=== PATIENT | male | born 1940 | race Caucasian/White ===

== ENCOUNTER 2020-08-25 20:58 | Observation (INO) ==
[2020-08-25] MEDS ORDERED: SODIUM CHLORIDE 0.9% 1000ML 500 ML IV ONE (21:28)
[2020-08-25] MEDS ORDERED: ONDANSETRON INJ 2 MG/ML 2 ML VIAL IV STA (21:28)
[2020-08-25] MEDS ORDERED: KETOROLAC TROMETHAMINE 15 MG/ML VIAL IV STA (21:28)
[2020-08-25 22:17] LABS: Basophils # (auto) 0.01 K/uL (0-0.2); Basophils % (auto) 0.1 %; Eosinophils # (auto) 0.02 K/uL (0-0.5); Eosinophils % (auto) 0.3 %; Hematocrit (blood only) 41.5 % (42-52); Hemoglobin 14.9 g/dL (14.0-18.0); Immature Granulocytes # (auto) 0.03 K/uL (0.00-0.02); Immature Granulocytes % (auto) 0.4 %; Lymphocytes # (auto) 0.49 K/uL (1.2-3.4); Lymphocytes % (auto) 7.2 %; Mean Corpuscular Hemoglobin 32.2 pg (25-34); Mean Corpuscular Hgb Conc 35.9 g/dL (32-36); Mean Corpuscular Volume 89.6 fL (80-100); Mean Platelet Volume 10.4 fL (7.4-10.4); Monocytes # (auto) 0.36 K/uL (0.11-0.59); Monocytes % (auto) 5.3 %; Neutrophils # (auto) 5.93 K/uL (1.4-6.5); Neutrophils % (auto) 86.7 %; Platelet Count 172 K/uL (130-400); RDW Coefficient of Variation 12.8 % (11.5-14.5); RDW Standard Deviation 41.8 fL (36.4-46.3); Red Blood Count 4.63 M/uL (4.7-6.1); White Blood Count 6.84 K/uL (4.8-10.8)
[2020-08-25 22:33] LABS: Alanine Aminotransferase 88 U/L (12-78); Albumin Level 4.3 gm/dl (3.4-5.0); Aspartate Aminotransferase 49 U/L (15-37); BUN Creatinine Ratio 22.6 (10-20); Bilirubin Direct < 0.1 mg/dl (0-0.2); Blood Urea Nitrogen 29 mg/dl (7-18); Calcium 9.6 mg/dl (8.5-10.1); Carbon Dioxide 27 mmol/L (21-32); Chloride 102 mmol/L (98-107); Creatinine Clr Calc Pharmacy 54.4 ml/min; Est GFR (African American) 62.3; Est GFR (Non-African American) 53.8; Glucose 204 mg/dl (70-99); Lipase 212 U/L (73-393); Sodium 136 mmol/L (136-145)
[2020-08-25 22:36] LABS: Alkaline Phosphatase 71 U/L (45-117); Bilirubin,Total 0.6 mg/dl (0.2-1); Total Protein 8.5 gm/dl (6.4-8.2)
--- NOTE | 2020-08-25 23:31 | Surgery Consultation ---
Date of Consultation August 25, 2020 Assessment & Plan (1) Cholecystitis: Patient will be admitted to the hospital and due to his underlying medical conditions will be admitted by the medical service. 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 after midnight It appears as though the patient would benefit from a cholecystectomy. However we would like the medical service to provide input regarding cardiac clearance/cardiac risk factor stratification particularly with his history of diabetes, and coronary artery disease and his reported dyspnea on exertion with steps and inclines. Tentatively place him on the OR schedule for laparoscopic possible open cholecystectomy tomorrow pending medical evaluation History of Present Illness Reason for Consultation: Cholecystitis History of Present Illness This is a 72-year-old male who presented to [facility] emergency department secondary to epigastric and right upper quadrant abdominal pain. Patient notes that he has been having intermittent on and off pain in his epigastric and right upper quadrant for several weeks. He notes that the pain is usually present approximately 20 to 30 minutes after eating a meal but the pain usually abates and does not cause him much trouble. He presented to the emergency department this evening as he developed similar pain however the pain was much greater in severity and did not geovanny. In addition he had some associated nausea and vomiting. He notes the pain did not radiate anywhere and feels it is though it was provoked by eating a meal. He notes the pain is palliated by pain medications that were administered in the emergency depa rtment. In the emergency department the patient had imaging and laboratory studies were independently reviewed by myself. He had a chest x-ray and KUB did not show any evidence of small bowel obstruction or any evidence of pneumonia or CHF. He did have a gallbladder ultrasound that showed a distended gallbladder with gallstones present. Sonographic Yee sign was reported to be present as well. Labs included a CBC where his white blood cell count was within normal range. His hemoglobin and platelet count were also noted be within normal range. Chemistry profile showed that his sodium, potassium, and creatinine are within normal range. His total bilirubin was normal but there was slight elevation of his LFTs with an AST of 49 and ALT of 88. It is noteworthy mention that the patient's records were reviewed dating back to 2018 where he was noted to have a slight elevation of his AST and ALT with levels of 30 and 55 respectively. His lipase was not elevated. Covid test has been ordered and is pending. As the patient has a known history of coronary artery disease and diabetes I did question him about his functional capacity. He denies any exertional chest pain however he does admit to dyspnea on exertion particular with steps and inclines. He reports that once he climbs 2 flights of steps he has to pause and his shortness of breath usually abates. Questioned about his cardiac history and he notes that he did have a stress test approximately 1 year ago and in the past he is also had a cardiac catheterization. The best of his knowledge his most recent stress test was okay but this was unavailable for my review as his operator supply is Dr. Malcolm in [place]. At the time of my interview the patient was in no distress and resting comfortably in bed. Allergies Allergy/AdvReac Type Severity Reaction Status Date / Time No Known Allergies Verified 08/25/20 23:21 Home Medications Medication Instructions Recorded Confirmed Type atorvastatin 10 mg tablet 10 mg PO QAM 01/24/19 08/25/20 History metformin 1,000 mg tablet 1,000 mg PO BID 01/24/19 08/25/20 History loratadine 10 mg tablet 10 mg PO QPM 06/10/19 07/05/20 History omega-3 fatty acids 1,000 mg 1,000 mg PO QPM 06/10/19 07/05/20 History capsule olmesartan 20 mg tablet 20 mg PO BID tab 06/30/19 08/25/20 History aspirin 81 mg tablet,delayed 81 mg PO QAM 06/10/20 08/25/20 History release diltiazem HCl 180 mg 180 mg PO QAM 06/10/20 07/05/20 History capsule,extended release 24 hr empagliflozin 10 mg tablet 10 mg PO QAM 06/10/20 08/25/20 History insulin aspart U-100 100 unit/mL 5 unit SUBCUT .am ml 06/10/20 08/25/20 History (3 mL) subcutaneous pen insulin aspart U-100 100 unit/mL 10 unit SUBCUT .Lunch and dinner 06/10/20 08/25/20 History (3 mL) subcutaneous pen ml insulin glargine U-300 conc 300 50 unit SUBCUT QAM 06/10/20 08/25/20 History unit/mL (3 mL) subcutaneous pen torsemide 20 mg tablet 20 mg PO QAM 06/10/20 07/05/20 History Metamucil 1 tbsp PO DAILY 06/21/20 07/05/20 History sucralfate enemas 2 g FL BID #60 ml 07/05/20 Rx clindamycin phosphate 1 applic TOPICAL HS 08/25/20 08/25/20 History tamsulosin 0.4 mg capsule 0.4 mg PO DAILY #30 cap 08/25/20 08/25/20 Rx Patient History Medical History Blood in stool Chronic sinusitis Coronary arteriosclerosis Diabetes IDDM History of colon polyps History of prostate cancer dx 03/2020; h/o radiation Hyperlipidemia Hypertension Surgical History H/O nasal septoplasty History of cardiac catheterization approx 5 years ago - [facility] - abn stress test - no stents (sees dr. malcolm) History of colonoscopy History of prostate biopsy S/P wrist surgery Right wrist surgery Status post surgery Hammer toe surgery on right great toe Family History Father , in his late 80s Diabetes Coronary heart disease Hx of CABG Stroke Sister Diabetes Acid reflux Mother , 90yo Natural with unknown cause Sister No problems noted. Son No problems noted. Daughter No problems noted. Other No family history of adverse response to anesthesia Social History Smoking Status: Never smoker Second Hand Exposure: No; Hx Alcohol Use: Yes Hx Substance Use: No Preferred Language: Setswana Communication Ability: Effective Visual Impairment: No Limitations Hearing Ability: Normal Antenna Engineer Required: No Beliefs That Will Affect Care: None marital status: Current Living Situation: Significant Other current occupational status: employed current occupation: Semi retired;Measures velocity for [employer] Feels Safe at Home: Yes caffeine: Yes (2 cups/day) during the past year weight has: remained stable Assistive Devices: Glasses Review of Systems Constitutional: no fever and no chills Eyes: no diplopia Ear, Nose, Mouth, Throat: no ear pain Respiratory: + dyspnea on exertion (Noted with inclines and steps); no cough and no dyspnea Cardiovascular: + dyspnea on exertion (Noted with inclines and steps); no chest pain Gastrointestinal: + abdominal pain, + nausea and + vomiting Genitourinary: no dysuria Musculoskeletal: no back pain Integumentary: no rash Neurologic: no localized weakness Physical Exam Constitutional: well developed and well nourished; no acute distress Eyes: + anicteric sclerae; no conjunctival abnormality ENMT: Ears: no hearing impairment No sublingual jaundice Neck: trachea midline Respiratory: normal respiratory effort, lungs clear to auscultation Cardiovascular: Rate/Rhythm: regular rate and regular rhythm Gastrointestinal (Abdomen): Abdomen is soft and nondistended. Bowel sounds are present. Pain was noted with deep palpation in the right upper quadrant. At the time of my exam Yee sign was noted to be negative. Musculoskeletal: No calf tenderness Skin: no rashes, warm and dry Neurologic: moves all extremities Psychiatric: A+Ox3, euthymic affect Results & Data ([facility]) Vital Signs (Past 12 Hours) Vital Signs Temp Pulse Resp BP Pulse Ox 08/25/20 21:02 36 C L 92 H 18 151/100 H 98 08/25/20 21:00 97 PG Care Time/CCT Total # of Minutes Spent Total Time Spent with Patient: Total time spent is greater than 50% in coordination of care (as documented) at patient's floor/unit and/or counseling patient: Coding Level of Care Code 61073 Inpt Consult Level 5 Diagnoses Cholecystitis K81.9
[2020-08-25] MEDS ORDERED: OPTIRAY 320 100ml IV ONE (23:46)
[2020-08-26 00:17] LABS: Influenza A virus by PCR Negative (Neg); Influenza B virus by PCR Negative (Neg); RSV by PCR Negative (Neg); SARS CoV2 RNA(COVID-19) InHosp NEGATIVE (Negative)
--- NOTE | 2020-08-26 00:19 | Emergency Department Note ---
History of Present Illness General Chief Complaint: Chest Pain Stated Complaint: chest discomfort/soreness, Vomit Time Seen by Provider: 08/25/20 21:14 History of Present Illness Provider Complaint: abdominal pain Onset (ago): 1 day(s) Pain Consistency: intermittent Location: RUQ Radiation: chest Severity: moderate Maximum Pain Intensity: 1 Current Pain Intensity: 4 Quality: + stabbing and + aching Relieved By: + nothing Exacerbated By: + eating Context: no foreign travel, no possible food poisoning, no sick contacts, no recent antibiotic use, no recent surgery/procedure and no recent injury Associated Symptoms: + nausea and + vomiting; no diarrhea, no fever, no chills, no constipation, no dysuria, no hematemesis, no hematochezia, no melena, no hematuria, no syncope, no headache, no back pain, no chest pain, no weakness and no breathing difficulty Home Medications Medication Instructions Recorded Confirmed Type atorvastatin 10 mg tablet 10 mg PO [facility] 01/24/19 08/25/20 History metformin 1,000 mg tablet 1,000 mg PO BID 01/24/19 08/25/20 History loratadine 10 mg tablet 10 mg PO QPM 06/10/19 08/25/20 History omega-3 fatty acids 1,000 mg 1,000 mg PO QPM 06/10/19 08/25/20 History capsule olmesartan 20 mg tablet 20 mg PO BID tab 06/30/19 08/25/20 History aspirin 81 mg tablet,delayed 81 mg PO [facility] 06/10/20 08/25/20 History release diltiazem HCl 180 mg 180 mg PO [facility] 06/10/20 08/25/20 History capsule,extended release 24 hr empagliflozin 10 mg tablet 10 mg PO [facility] 06/10/20 08/25/20 History insulin aspart U-100 100 unit/mL 5 unit SUBCUT .am ml 06/10/20 08/25/20 History (3 mL) subcutaneous pen insulin aspart U-100 100 unit/mL 10 unit SUBCUT .Lunch and dinner 06/10/20 08/25/20 History (3 mL) subcutaneous pen ml insulin glargine U-300 conc 300 50 unit SUBCUT QAM 06/10/20 08/25/20 History unit/mL (3 mL) subcutaneous pen torsemide 20 mg tablet 20 mg PO [facility] 06/10/20 08/25/20 History Metamucil 1 tbsp PO DAILY 06/21/20 08/25/20 History sucralfate enemas 2 g W[place] BID #60 ml 07/05/20 Rx clindamycin phosphate 1 applic TOPICAL HS 08/25/20 08/25/20 History tamsulosin 0.4 mg capsule 0.4 mg PO DAILY #30 cap 08/25/20 08/25/20 Rx Allergies Allergy/AdvReac Type Severity Reaction Status Date / Time No Known Allergies Verified 08/25/20 23:21 Past Med/Surg History Medical History Blood in stool Chronic sinusitis Coronary arteriosclerosis Diabetes IDDM History of colon polyps History of prostate cancer dx 03/2020; h/o radiation Hyperlipidemia Hypertension Surgical History H/O nasal septoplasty History of cardiac catheterization approx 5 years ago - [facility] - abn stress test - no stents (sees dr. duenas) History of colonoscopy History of prostate biopsy S/P wrist surgery Right wrist surgery Status post surgery Hammer toe surgery on right great toe Family History Father , in his late 80s Diabetes Coronary heart disease Hx of CABG Stroke Sister Diabetes Acid reflux Mother , 90yo Natural with unknown cause Sister No problems noted. Son No problems noted. Daughter No problems noted. 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[employer] Feels Safe at Home: Yes caffeine: Yes (2 cups/day) during the past year weight has: remained stable Assistive Devices: Glasses Review of Systems A total of 10 systems reviewed and were otherwise negative Physical Exam Vital Signs: Vital Signs - 24 hr 08/25/20 21:00 08/25/20 21:02 Temperature 36 C L Temperature Source Temporal Artery Sc an Pulse Rate 92 H Respiratory Rate 18 Respiratory Effort / Characteristics Non-Labored Respiratory Depth Normal Respiratory Patter n Regular Blood Pressure 151/100 H Blood Pressure Gretchen n 117 Pulse Oximetry 97 98 Oxygen Delivery Me thod Room Air Room Air Sepsis Recent Feve r Within 48 Hours No Sepsis New/Unexpla ined Change in Men dany Status No Sepsis Action Take n by Nursing No Action Required Physical Exam: Physical Exam GENERAL: She is oriented to person, place, and time. She appears well-developed and well-nourished. She does not appear distressed. HENT: Exam performed. -Head: Normocephalic and atraumatic. -Right Ear: External ear normal. No mastoid tenderness. -Left Ear: External ear normal. No mastoid tenderness. -Mouth/Throat: The oropharynx is clear and moist. No trismus in the jaw. No dental abscesses or uvula swelling. No oropharyngeal exudate or tonsillar abscesses. EYES: Conjunctivae and EOM are normal. Pupils are equal, round, and reactive to light. Right eye exhibits no discharge. Left eye exhibits no discharge. No scleral icterus. NECK: Normal range of motion. Neck supple. No JVD present. No spinous process tenderness present. No carotid bruit present. No rigidity. No tracheal deviation and normal range of motion present. No Brudzinski's sign and no Kernig's sign noted. CV: Normal rate, regular rhythm, normal heart sounds and intact distal pulses. There is no peripheral edema. Palpable radial pulses bue. PULM/CHEST: Effort normal and breath sounds normal. No respiratory distress. No stridor. She has no wheezes. She has no rales. -Chest Wall: She exhibits no tenderness. ABD: The abdomen is soft. Bowel sounds are normal. She has no distension. No mass is present. There is tenderness to palpation of the right upper quadrant. There is no rebound, no guarding, no Yee's sign and no tenderness at McBurney's point. Rovsig negative MUSC/SKEL: Normal range of motion. There is no peripheral edema, tenderness or deformity. LYMPH: No cervical adenopathy. NEURO: She is alert and oriented to person, place, and time. She has normal s trength. No cranial nerve deficit or sensory deficit. Coordination and gait normal. GCS eye subscore is 4. GCS verbal subscore is 5. GCS motor subscore is 6. Cerebellar tests wnl. SKIN: Skin is warm and dry. She is not diaphoretic. PSYCH: She has a normal mood and affect. Behavior is normal. Judgment and thought content normal. Course Course 2113: The patient was evaluated in room C6. A complete history and physical exam was performed Cardiac monitoring: An order was placed for continuous cardiac monitoring. The monitor shows a rate of 90 with sinus rhythm 2330: Vital signs stable. Labs show normal white blood cell count. Liver function tests are elevated. Ultrasound of the abdomen does show sonographic Yee sign. Patient is tender on palpation of the right upper quadrant. I did consult surgery. Jon Sevilla PA-C came down to evaluate the patient and recommended that the patient be admitted to [facility] team for acute cholecystitis. Dr. Zamudio has been notified. Administered Medications Discontinued Medications Sodium Chloride (Nss 1000ml) 500 mls @ 999 mls/hr IV .Q31M ONE Stop: 08/25/20 21:58 Last Infusion: 08/25/20 22:36 Dose: 0 mls/hr Documented by: [id number] Admin: 08/25/20 21:51 Dose: 999 mls/hr Documented by: [id number] Ioversol (Ioversol 100ml) 94 ml IV ONCE ONE Stop: 08/25/20 23:47 Last Admin: 08/25/20 23:46 Dose: 94 ml Documented by: [id number] Ketorolac Tromethamine (Ketorolac Tromethamine 15 Mg/Ml Vial) 15 mg IV NOW STA Stop: 08/25/20 21:29 Last Admin: 08/25/20 21:50 Dose: 15 mg Documented by: [id number] Ondansetron HCl (Ondansetron Inj 2 Mg/Ml 2 Ml Vial) 4 mg IV NOW STA Stop: 08/25/20 21:29 Last Admin: 08/25/20 21:50 Dose: 4 mg Documented by: [id number] Medical Decision Making Laboratory Data Result diagrams: 08/25/20 21:45 08/25/20 21:45 Lab Results 08/25/20 08/25/20 08/25/20 Range/Units 21:45 21:45 23:27 WBC 6.84 (4.8-10.8) K/uL RBC 4.63 L (4.7-6.1) M/uL Hgb 14.9 (14.0-18.0) g/dL Hct 41.5 L (42-52) % MCV 89.6 (80-100) fL MCH 32.2 (25-34) pg MCHC 35.9 (32-36) g/dL RDW Std Deviation 41.8 (36.4-46.3) fL RDW Coeff of Brandy 12.8 (11.5-14.5) % Plt Count 172 (130-400) K/uL MPV 10.4 (7.4-10.4) fL Immature Gran % (Auto) 0.4 % Neut % (Auto) 86.7 % Lymph % (Auto) 7.2 % Boundary % (Auto) 5.3 % Eos % (Auto) 0.3 % Baso % (Auto) 0.1 % Neut # (Auto) 5.93 (1.4-6.5) K/uL Lymph # (Auto) 0.49 L (1.2-3.4) K/uL Boundary # (Auto) 0.36 (0.11-0.59) K/uL Eos # (Auto) 0.02 (0-0.5) K/uL Baso # (Auto) 0.01 (0-0.2) K/uL Immature Gran # (Auto) 0.03 H (0.00-0.02) K/uL Sodium 136 (136-145) mmol/L Potassium 4.0 (3.5-5.1) mmol/L Chloride 102 (98-107) mmol/L Carbon Dioxide 27 (21-32) mmol/L Anion Gap 7.0 (3-11) BUN 29 H (7-18) mg/dl Creatinine 1.27 (0.6-1.4) mg/dl Est Cr Clr Drug Dosing 54.4 ml/min Est GFR ( Amer) 62.3 Est GFR (Non-Af Amer) 53.8 BUN/Creatinine Ratio 22.6 H (10-20) Glucose 204 H (70-99) mg/dl Calcium 9.6 (8.5-10.1) mg/dl Total Bilirubin 0.6 (0.2-1) mg/dl Direct Bilirubin < 0.1 (0-0.2) mg/dl AST 49 H (15-37) U/L ALT 88 H (12-78) U/L Alkaline Phosphatase 71 (45-117) U/L Total Protein 8.5 H (6.4-8.2) gm/dl Albumin 4.3 (3.4-5.0) gm/dl Lipase 212 (73-393) U/L COVID-19 Eval Order CovFluRsv at [facility] SARS-CoV-2 (PCR) (Negative) Influenza Type A (PCR) (Neg) Influenza Type B (PCR) (Neg) RSV (RT-PCR) (Neg) 08/25/20 Range/Units 23:27 WBC (4.8-10.8) K/uL RBC (4.7-6.1) M/uL Hgb (14.0-18.0) g/dL Hct (42-52) % MCV (80-100) fL MCH (25-34) pg MCHC (32-36) g/dL RDW Std Deviation (36.4-46.3) fL RDW Coeff of Brandy (11.5-14.5) % Plt Count (130-400) K/uL MPV (7.4-10.4) fL Immature Gran % (Auto) % Neut % (Auto) % Lymph % (Auto) % Boundary % (Auto) % Eos % (Auto) % Baso % (Auto) % Neut # (Auto) (1.4-6.5) K/uL Lymph # (Auto) (1.2-3.4) K/uL Boundary # (Auto) (0.11-0.59) K/uL Eos # (Auto) (0-0.5) K/uL Baso # (Auto) (0-0.2) K/uL Immature Gran # (Auto) (0.00-0.02) K/uL Sodium (136-145) mmol/L Potassium (3.5-5.1) mmol/L Chloride (98-107) mmol/L Carbon Dioxide (21-32) mmol/L Anion Gap (3-11) BUN (7-18) mg/dl Creatinine (0.6-1.4) mg/dl Est Cr Clr Drug Dosing ml/min Est GFR ( Amer) Est GFR (Non-Af Amer) BUN/Creatinine Ratio (10-20) Glucose (70-99) mg/dl Calcium (8.5-10.1) mg/dl Total Bilirubin (0.2-1) mg/dl Direct Bilirubin (0-0.2) mg/dl AST (15-37) U/L ALT (12-78) U/L Alkaline Phosphatase (45-117) U/L Total Protein (6.4-8.2) gm/dl Albumin (3.4-5.0) gm/dl Lipase (73-393) U/L COVID-19 Eval Order SARS-CoV-2 (PCR) NEGATIVE (Negative) Influenza Type A (PCR) Negative (Neg) Influenza Type B (PCR) Negative (Neg) RSV (RT-PCR) Negative (Neg) Imaging Data My Impression: Chest x-ray negative. Airway clear. No pneumothorax. No consolidation. No cardiomegaly or cephalization.. No free air under the diaphragm. No fractures of the skeletal structures. No air-fluid levels. Radiologist's Impression: Preliminary Findings Only See Final Report For Complete Findings US RUQ: Gallbladder distention and cholelithiasis. No inflammatory or obstructive changes. Positive sonographic Yee sign is reported. Pancreas is mostly obscured. Echogenic liver suggesting fatty infiltration or hepatocellular disease. Hepatomegaly, 18.6 cm Radiologist: Ashkan Galvan M.D. Study ready at 22:25 and initial results transmitted at 22:29 ECG Data Indication: abdominal pain Rate (beats per minute): 85 Rhythm: normal sinus Findings: + RBBB; no ST depression, no ST elevation and no prolonged QT MDM Narrative 2114: The patient was evaluated in room C6. A complete history and physical exam was performed Cardiac monitoring: An order was placed for continuous cardiac monitoring. The monitor shows a rate of 90 with sinus rhythm 2330: Vital signs stable. Labs show normal white blood cell count. Liver function tests are elevated. Ultrasound of the abdomen does show sonographic Yee sign. Patient is tender on palpation of the right upper quadrant. I did consult surgery. Jon Sevilla PA-C came down to evaluate the patient and recommended that the patient be admitted to [facility] team for acute cholecystitis. Dr. Zamudio has been notified. Impression & Plan Acute cholecystitis Discharge Plan Visit Data Chief Complaint: Chest Pain Stated Complaint: chest discomfort/soreness, Vomit ED Provider: Daniel Mckinney Discharge Problem: Acute cholecystitis Patient Disposition: Being Evaluated by Hospitalist Forms Stand Alone Forms: [facility] Prescriptions Prescriptions: No Action insulin aspart U-100 [Novolog Flexpen U-100 Insulin] 100 unit/mL (3 mL) insulin pen 5 unit subcut .am RF: 0 insulin aspart U-100 [Novolog Flexpen U-100 Insulin] 100 unit/mL (3 mL) insul in pen 10 unit subcut .Lunch and dinner RF: 0 Toujeo Max U-300 SoloStar 300 unit/mL (3 mL) insulin pen 50 unit subcut QAM RF: 0 Jardiance 10 mg tablet 10 mg PO QAM RF: 0 torsemide 20 mg tablet 20 mg PO QAM RF: 0 diltiazem HCl [Cartia XT] 180 mg capsule,extended release 24hr 180 mg PO QAM RF: 0 aspirin [Adult Low Dose Aspirin] 81 mg tablet,delayed release (DR/EC) 81 mg PO QAM RF: 0 loratadine [Claritin] 10 mg tablet 10 mg PO QPM RF: 0 omega-3 fatty acids [Fish Oil Concentrate] 1,000 mg capsule 1,000 mg PO QPM RF: 0 sucralfate enemas 2 g enema 2 g WV BID Qty: 60 RF: 1 tamsulosin 0.4 mg capsule 0.4 mg PO DAILY Qty: 30 RF: 5 metformin 1,000 mg tablet 1,000 mg PO BID RF: 0 atorvastatin 10 mg tablet 10 mg PO QAM RF: 0 olmesartan 20 mg tablet 20 mg PO BID RF: 0 Metamucil 3.4 gram/5.4 gram Powder 1 tbsp PO DAILY RF: 0 clindamycin phosphate 1 % solution 1 applic TOPICAL HS RF: 0 Referrals Referrals: Joon Parham [Primary Care Provider] -
[2020-08-26] MEDS: cefOXitin 2,000 MG in DEXTROSE 5% 50 ML IV SCH ×4 (00:44→17:48)
[2020-08-26] MEDS: MoRPHine SULFATE 2 MG/ML CARP IV SCH ×2 (00:52→04:34)
--- NOTE | 2020-08-26 01:38 | History & Physical Report ---
Date of Service August 26, 2020 Assessment & Plan (1) Acute cholecystitis: Franklin Eisenberg is a 80-year-old male with PMH difficult for coronary artery disease, prostate cancer, hypertension, and diabetes; who presented to the ER for concerns of abdominal pain over the last day. Acute cholecystitis: -Gallbladder ultrasound performed in ED demonstrating distended gallbladder with presence of gallstones and positive sonographic Yee sign -Mild elevation of AST and ALT -CT abdomen pelvis demonstrating fatty liver disease, gallbladder distention and cholelithiasis, diverticula without signs of diverticulitis, heterogeneous prostate -Surgery consulted: Recommended n.p.o. at midnight for potential procedure in a.m. -Continue cefoxitin per surgery; morphine, Zofran PRN -Consideration of further cardiac evaluation prior to surgery dependent on pending cardiology records as below Coronary artery disease: -Uncertain extent of coronary artery disease, but regularly follows with medical fee clerk in [place] -We will attempt to get records of most recent stress test and echocardiogram for delineation of cardiac history -Follows with [facility] (Dr. Malcolm - [phone]) -Continue atorvastatin, Cardizem, olmesartan at this time Hypertension: -Continue Cardizem, olmesartan Diabetes: -Hold home insulin regimen -BSG's ACHS with sliding scale insulin Diet: N.p.o. for potential surgical procedure in a.m. CODE STATUS: Conditional code (no mechanical ventilation) DVT PPx: Hold at this time, encourage ambulation (2) Prostate cancer: (3) Coronary artery disease: History of Present Illness Chief Complaint: Abdominal pain Primary Care Provider: Joon Parham Franklin Eisenberg is a 80-year-old male with PMH difficult for coronary artery disease, prostate cancer, hypertension, and diabetes; who presented to the ER for concerns of abdominal pain over the last day. Over the last of years patient has intermittently had abdominal pain after eating certain types of meals, however yesterday following eating lunch this pain presented self and patient subsequently noticed that he felt nauseous and ultimately vomited multiple times. This nausea, vomiting, and right upper abdominal pain persisted throughout the day and into the evening and after starting to eat dinner and having the pain worsening, patient discussed with desire to go to the hospital for further evaluation as he was not sure if it was truly abdominal or cardiac in nature. Throughout this time patient had no substernal chest pain, radiating chest pain, shortness of breath, shortness of breath with exertion, headache, lightheadedness, dizziness, changes in vision, swelling of his hands or legs. Was mainly worried about the potential for this to be his heart, given that in 2012 patient had chest pain event that ultimately resulted in him having a cardiac catheterization, for which he was told he had a small amount of plaque in one of his vessels (does not remember which one). He has been subsequently following with cardiology at [facility] clinic for the last several years without repeat events. States that as of 2019, did have an echo as well as cardiac stress test that were negative (thinks this was in June 2019). Allergies Allergy/AdvReac Type Severity Reaction Status Date / Time No Known Allergies Verified 08/25/20 23:21 Home Medications Medication Instructions Recorded Confirmed Type atorvastatin 10 mg tablet 10 mg PO QAM 01/24/19 08/25/20 History metformin 1,000 mg tablet 1,000 mg PO BID 01/24/19 08/25/20 History loratadine 10 mg tablet 10 mg PO QPM 06/10/19 08/25/20 History omega-3 fatty acids 1,000 mg 1,000 mg PO QPM 06/10/19 08/25/20 History capsule olmesartan 20 mg tablet 20 mg PO BID tab 06/30/19 08/25/20 History aspirin 81 mg tablet,delayed 81 mg PO QAM 06/10/20 08/25/20 History release diltiazem HCl 180 mg 180 mg PO QAM 06/10/20 08/25/20 History capsule,extended release 24 hr empagliflozin 10 mg tablet 10 mg PO QAM 06/10/20 08/25/20 History insulin aspart U-100 100 unit/mL 5 unit SUBCUT .am ml 06/10/20 08/25/20 History (3 mL) subcutaneous pen insulin aspart U-100 100 unit/mL 10 unit SUBCUT .Lunch and dinner 06/10/20 08/25/20 History (3 mL) subcutaneous pen ml insulin glargine U-300 conc 300 50 unit SUBCUT QAM 06/10/20 08/25/20 History unit/mL (3 mL) subcutaneous pen torsemide 20 mg tablet 20 mg PO QAM 06/10/20 08/25/20 History Metamucil 1 tbsp PO DAILY 06/21/20 08/25/20 History sucralfate enemas 2 g MO BID #60 ml 07/05/20 Rx clindamycin phosphate 1 applic TOPICAL HS 08/25/20 08/25/20 History tamsulosin 0.4 mg capsule 0.4 mg PO DAILY #30 cap 08/25/20 08/25/20 Rx Past Med/Surg History Medical History Blood in stool Chronic sinusitis Coronary arteriosclerosis Diabetes IDDM History of colon polyps History of prostate cancer dx 03/2020; h/o radiation Hyperlipidemia Hypertension Surgical History H/O nasal septoplasty History of cardiac catheterization approx 5 years ago - [facility] - abn stress test - no stents (sees dr. malcolm) History of colonoscopy History of prostate biopsy S/P wrist surgery Right wrist surgery Status post surgery Hammer toe surgery on right great toe Family History Father , in his late 80s Diabetes Coronary heart disease Hx of CABG Stroke Sister Diabetes Acid reflux Mother , 90yo Natural with unknown cause Sister No problems noted. Son No problems noted. Daughter No problems noted. Other No family history of adverse response to anesthesia Social History Smoking Status: Never smoker Second Hand Exposure: No; Hx Alcohol Use: Yes Alcohol type: beer, wine and hard liquor Hx Substance Use: No Preferred Language: South [place] Communication Ability: Effective Visual Impairment: No Limitations Hearing Ability: Normal Director Internal Control Required: No Beliefs That Will Affect Care: None marital status: Current Living Situation: Spouse current occupational status: employed current occupation: Semi retired;Measures velocity for [employer] Other Information That Helps Us Care for You: No Feels Safe at Home: Yes Safety Concerns: Feels Safe At This Time caffeine: Yes (2 cups/day) during the past year weight has: remained stable Assistive Devices: Glasses Assistive Devices Comment: Glasses for distance Review of Systems Review of Systems: All systems reviewed & are unremarkable except as noted in HPI & below Physical Exam Constitutional: WD/WN, vitals as above Eyes: PERRL, conjunctivae normal, anicteric sclerae ENMT: external ear and nose normal, oropharynx normal Respiratory: normal respiratory effort, lungs clear to auscultation Cardiovascular: Rate/Rhythm: regular rate and regular rhythm Heart Sounds: + murmur (systolic ejection best heard over MATIAS border); no gallop and no cardiac rub Vessels: normal peripheral pulses; no JVD Extremities: no calf tenderness Gastrointestinal (Abdomen): Percussion/Palpation: + abdomen tender (RUQ) and abdomen soft; no guarding and no hepatosplenomegaly Skin: no rashes, warm and dry Neurologic: PERRL, EOMI, accommodation nl, no face palsy, no dysarthria Psychiatric: Orientation: alert and oriented x 3 Results & Data Results & Data ([facility]) Vital Signs (Past 12 Hours) Vital Signs Temp Pulse Resp BP Pulse Ox 08/25/20 21:02 36 C L 92 H 18 151/100 H 98 08/25/20 21:00 97 Laboratory Results 08/25/20 08/25/20 08/25/20 Range/Units 23:27 23:27 21:45 WBC (4.8-10.8) K/uL RBC (4.7-6.1) M/uL Hgb (14.0-18.0) g/dL Hct (42-52) % MCV (80-100) fL MCH (25-34) pg MCHC (32-36) g/dL RDW Std Deviation (36.4-46.3) fL RDW Coeff of Brandy (11.5-14.5) % Plt Count (130-400) K/uL MPV (7.4-10.4) fL Immature Gran % (Auto) % Neut % (Auto) % Lymph % (Auto) % [place] % (Auto) % Eos % (Auto) % Baso % (Auto) % Neut # (Auto) (1.4-6.5) K/uL Lymph # (Auto) (1.2-3.4) K/uL [place] # (Auto) (0.11-0.59) K/uL Eos # (Auto) (0-0.5) K/uL Baso # (Auto) (0-0.2) K/uL Immature Gran # (Auto) (0.00-0.02) K/uL Sodium 136 (136-145) mmol/L Potassium 4.0 (3.5-5.1) mmol/L Chloride 102 (98-107) mmol/L Carbon Dioxide 27 (21-32) mmol/L Anion Gap 7.0 (3-11) BUN 29 H (7-18) mg/dl Creatinine 1.27 (0.6-1.4) mg/dl Est Cr Clr Drug Dosing 54.4 ml/min Est GFR ( Amer) 62.3 Est GFR (Non-Af Amer) 53.8 BUN/Creatinine Ratio 22.6 H (10-20) Glucose 204 H (70-99) mg/dl Calcium 9.6 (8.5-10.1) mg/dl Total Bilirubin 0.6 (0.2-1) mg/dl Direct Bilirubin < 0.1 (0-0.2) mg/dl AST 49 H (15-37) U/L ALT 88 H (12-78) U/L Alkaline Phosphatase 71 (45-117) U/L Total Protein 8.5 H (6.4-8.2) gm/dl Albumin 4.3 (3.4-5.0) gm/dl Lipase 212 (73-393) U/L COVID-19 Eval Order CovFluRsv at [facility] SARS-CoV-2 (PCR) NEGATIVE (Negative) Influenza Type A (PCR) Negative (Neg) Influenza Type B (PCR) Negative (Neg) RSV (RT-PCR) Negative (Neg) 08/25/20 Range/Units 21:45 WBC 6.84 (4.8-10.8) K/uL RBC 4.63 L (4.7-6.1) M/uL Hgb 14.9 (14.0-18.0) g/dL Hct 41.5 L (42-52) % MCV 89.6 (80-100) fL MCH 32.2 (25-34) pg MCHC 35.9 (32-36) g/dL RDW Std Deviation 41.8 (36.4-46.3) fL RDW Coeff of Brandy 12.8 (11.5-14.5) % Plt Count 172 (130-400) K/uL MPV 10.4 (7.4-10.4) fL Immature Gran % (Auto) 0.4 % Neut % (Auto) 86.7 % Lymph % (Auto) 7.2 % [place] % (Auto) 5.3 % Eos % (Auto) 0.3 % Baso % (Auto) 0.1 % Neut # (Auto) 5.93 (1.4-6.5) K/uL Lymph # (Auto) 0.49 L (1.2-3.4) K/uL [place] # (Auto) 0.36 (0.11-0.59) K/uL Eos # (Auto) 0.02 (0-0.5) K/uL Baso # (Auto) 0.01 (0-0.2) K/uL Immature Gran # (Auto) 0.03 H (0.00-0.02) K/uL Sodium (136-145) mmol/L Potassium (3.5-5.1) mmol/L Chloride (98-107) mmol/L Carbon Dioxide (21-32) mmol/L Anion Gap (3-11) BUN (7-18) mg/dl Creatinine (0.6-1.4) mg/dl Est Cr Clr Drug Dosing ml/min Est GFR ( Amer) Est GFR (Non-Af Amer) BUN/Creatinine Ratio (10-20) Glucose (70-99) mg/dl Calcium (8.5-10.1) mg/dl Total Bilirubin (0.2-1) mg/dl Direct Bilirubin (0-0.2) mg/dl AST (15-37) U/L ALT (12-78) U/L Alkaline Phosphatase (45-117) U/L Total Protein (6.4-8.2) gm/dl Albumin (3.4-5.0) gm/dl Lipase (73-393) U/L COVID-19 Eval Order SARS-CoV-2 (PCR) (Negative) Influenza Type A (PCR) (Neg) Influenza Type B (PCR) (Neg) RSV (RT-PCR) (Neg) Medications Administered Current Inpatient Medications Aspirin (Aspirin 81 Mg Ectab) 81 mg PO QAM SOULEYMANE Stop: 09/25/20 08:59 Atorvastatin Calcium (Atorvastatin 10 Mg Tab) 10 mg PO QAM SOULEYMANE Stop: 09/25/20 08:59 Dextrose (Dextrose 50% 50 Ml Syringe) 25 - 50 ml IV UD PRN; Protocol PRN Reason: Hypoglycemia Protocol Stop: 09/25/20 02:52 Diltiazem HCl (Diltiazem Hcl 180 Mg Capcr) 180 mg PO QAM SOULEYMANE Stop: 09/25/20 08:59 Glucagon (Glucagon For Inj 1 Mg Vial) 1 mg SQ UD PRN; Protocol PRN Reason: Hypoglycemia Protocol Stop: 09/25/20 02:52 Glucose (Glucose 10 Tabs/Tube) 4 - 8 tabs PO UD PRN; Protocol PRN Reason: Hypoglycemia Protocol Stop: 09/25/20 02:52 Glucose (Glucose 40% Gel 15 Gm Tube) 15 - 30 gm PO UD PRN; Protocol PRN Reason: Hypoglycemia Protocol Stop: 09/25/20 02:52 Cefoxitin Sodium 2,000 mg/ (Dextrose) 60 mls @ 100 mls/hr IV Q6H SOULEYMANE Stop: 09/05/20 00:29 Last Infusion: 08/26/20 01:28 Dose: Infused Documented by: Insulin Aspart (Insulin Aspart 100 Units/Ml 3 Ml Pen) 0 units SC ACHS SOULEYMANE Stop: 09/25/20 07:29 Miscellaneous (Carbohydrates For Hypoglycemia ) 15 - 30 gm PO UD PRN PRN Reason: Hypoglycemia Protocol Stop: 09/25/20 02:52 Morphine Sulfate (Morphine Sulfate 2 Mg/Ml Carp) 2 mg IV Q3H SOULEYMANE Stop: 09/09/20 00:29 Last Admin: 08/26/20 00:52 Dose: Not Given Documented by: Olmesartan (Olmesartan Medoxomil 20 Mg Tab) 20 mg PO BID SOULEYMANE Stop: 09/25/20 08:59 Ondansetron HCl (Ondansetron Inj 2 Mg/Ml 2 Ml Vial) 4 mg IV Q6H SOULEYMANE Stop: 09/25/20 03:59 Tamsulosin HCl (Tamsulosin Hcl 0.4 Mg Cap) 0.4 mg PO DAILY SOULEYMANE Stop: 09/25/20 08:59 Supervising Physician Co-Signing Physician Notes Attending addendum: I have physically seen this patient, have supervised the medical residents activities, and agree with the H&P unless as otherwise noted. Assessment and Plan: Acute cholecystitis- Gallbladder ultrasound shows distended gallbladder with presence of gallstones and positive sonographic Yee sign AST 49, ALT 88, follow serially. CT abdomen and pelvis: NAFLD, gallbladder distention and cholelithiasis. Surgery consulted and saw patient in the ED Continue IV antibiotics, morphine and Zofran. CAD/hypertension- Continue Cardizem and on losartan with hold parameters Obtain records from his medical fee clerk [facility] Ric, Dr. Malcolm, and determine if cardiology consult here is needed Diabetes mellitus- Hold insulin Placed on Accu-Cheks before meals and at bedtime/every 6 hours, with NovoLog coverage Remaining orders and notations as noted Resident Activity Tracking Resident Involvement: Resident Care Provided Care Provided: Adult Hospital Medicine
[2020-08-26] MEDS ORDERED: DEXTROSE 50% 50 ML SYRINGE IV PRN (02:53)
[2020-08-26] MEDS ORDERED: CARBOHYDRATES FOR HYPOGLYCEMIA PO PRN (02:53)
[2020-08-26] MEDS ORDERED: GLUCAGON FOR INJ 1 MG VIAL SQ PRN (02:53)
[2020-08-26] MEDS ORDERED: GLUCOSE 10 TABS/TUBE PO PRN (02:53)
[2020-08-26] MEDS ORDERED: GLUCOSE 40% GEL 15 GM TUBE PO PRN (02:53)
[2020-08-26] MEDS ORDERED: MoRPHine SULFATE 2 MG/ML CARP IV PRN ×2 (03:57→12:52)
[2020-08-26] MEDS ORDERED: ONDANSETRON INJ 2 MG/ML 2 ML VIAL IV PRN ×2 (03:58→10:07)
[2020-08-26] MEDS ORDERED: ONDANSETRON INJ 2 MG/ML 2 ML VIAL IV SCH (04:00)
[2020-08-26] MEDS ORDERED: ACETAMINOPHEN 1000 MG/100 ML IV IV STA (06:29)
[2020-08-26] MEDS: INSULIN ASPART 100 UNITS/ML 3 ML PEN SC SCH ×4 (06:45→21:31)
--- NOTE | 2020-08-26 07:15 | Ultrasound Report ---
ABDOMINAL ULTRASOUND, RIGHT UPPER QUADRANT HISTORY: ruq pain. COMPARISON: Abdomen and pelvis CT 04/28/2019. FINDINGS: Pancreas: The pancreatic tail is obscured by overlying bowel gas. The remaining portions of the pancr eas are within normal limits. Liver: The liver is echogenic consistent with fatty change. Gallbladder: The gallbladder is mildly distended. There are few small stones and sludge near the gall bladder neck. The technologist reported a positive sonographic Yee sign. No significant gallbladde r wall thickening. CBD: 4 mm. Right kidney: No hydronephrosis. A 2 cm upper pole cyst. IMPRESSION: Mildly distended gallbladder with a few small stones and sludge in the gallbladder neck. A positive s onographic Yee sign was reported. Therefore, this could represent an acute cholecystitis. Consider follow-up nuclear medicine HIDA scan for confirmation. ACT 112: Negative or not required by law. Electronically signed by: Issa Hughes M.D. 08/26/2020 7:14 AM
--- NOTE | 2020-08-26 07:20 | CT Scan Report ---
ABDOMEN AND PELVIS CT WITH IV CONTRAST CT DOSE: 645.84 mGy.cm HISTORY: Acute generalized abdominal pain with elevated LFTs elevated LFTs with h/o cancer and abdom inal pain TECHNIQUE: Multiaxial CT images of the abdomen and pelvis were performed following the IV administrat ion of 94 cc of Optiray 320, A dose lowering technique was utilized adhering to the principles of AL GARCIA. COMPARISON STUDY: Bone scan 04/28/2019, CT abdomen and pelvis 04/28/2019 FINDINGS: Mild subsegmental bibasilar atelectasis/scarring. There is no pneumatosis or pneumoperitone um. Imaged inferior cardiac chambers are unremarkable. Unremarkable spleen, pancreas and adrenal glan ds. Cholelithiasis with the gallbladder wall measuring in the upper limits of normal at approximately 3 mm. Trace pericholecystic edema. There is a 5 mm stone present within the cystic duct on image 126 . Hepatic steatosis. Patency of the hepatic and portal veins. Hypodense lesions of the superior poles of the kidneys are redemonstrated measuring up to 2.2 cm sugg estive of probable cysts. No urolith or obstructive uropathy. Prostamegaly with urinary bladder wall thickening suggestive of chronic bladder outlet obstruction. Calcified plaque of the abdominal aorta. No adenopathy. Small hiatal hernia with distal esophageal wall thickening. Duodenal diverticula. Colonic diverticulo sis. Metallic clip is present within the rectum. Mild associated rectal wall thickening with perirect al stranding. Moderate fecal retention. Normal appendix. Tiny fat filled periumbilical hernia. Degene rative changes of the spine, pelvis and hips. The previously described ill-defined sclerosis of the l eft iliac bone is redemonstrated and is favored to be benign. Chronic appearing compression deformity of the T12 vertebral body. IMPRESSION: 1. Cholelithiasis with the gallbladder wall measuring in the upper limits of normal. Additionally, th ere is trace pericholecystic edema along with a 5 mm stone within the cystic duct. Findings may refle ct developing acute cholecystitis. This finding was called/faxed to the emergency department at time of dictation. 2. Metallic clip of the rectum is noted in addition to rectal wall thickening and trace perirectal st randing. 2. No bowel obstruction or pneumoperitoneum. 3. Hepatic steatosis. 4. Small hiatal hernia. 5. Colonic diverticulosis. 6. Additional findings as above. ACT 112: Negative or not required by law. The above report was generated using voice recognition software. It may contain grammatical, syntax o r spelling errors. Electronically signed by: Rajan Hightower M.D. 08/26/2020 7:19 AM
[2020-08-26 07:30] LABS: Appearance Urine Clear (Clear); Bilirubin Urine Negative (Negative); Blood Urine Negative (Negative); Color Urine Yellow; Glucose Urine UA 3+ (Negative); Ketones Urine Negative (Negative); Leukocyte Esterase Urine Negative (Negative); Nitrite Urine Negative (Negative); Protein Urine Negative (Negative); Specific Gravity Urine 1.045 (1.000-1.030); Urobilinogen Urine Negative (Negative)
[2020-08-26 07:35] LABS: Basophils # (auto) 0.01 K/uL (0-0.2); Basophils % (auto) 0.1 %; Eosinophils # (auto) 0.02 K/uL (0-0.5); Eosinophils % (auto) 0.2 %; Hematocrit (blood only) 38.3 % (42-52); Hemoglobin 13.5 g/dL (14.0-18.0); Immature Granulocytes # (auto) 0.01 K/uL (0.00-0.02); Immature Granulocytes % (auto) 0.1 %; Lymphocytes # (auto) 0.52 K/uL (1.2-3.4); Lymphocytes % (auto) 5.1 %; Mean Corpuscular Hemoglobin 31.9 pg (25-34); Mean Corpuscular Volume 90.5 fL (80-100); Mean Platelet Volume 10.2 fL (7.4-10.4); Monocytes # (auto) 0.78 K/uL (0.11-0.59); Monocytes % (auto) 7.6 %; Neutrophils # (auto) 8.86 K/uL (1.4-6.5); Neutrophils % (auto) 86.9 %; Platelet Count 149 K/uL (130-400); RDW Coefficient of Variation 12.7 % (11.5-14.5); RDW Standard Deviation 41.6 fL (36.4-46.3); Red Blood Count 4.23 M/uL (4.7-6.1)
[2020-08-26 07:49] LABS: Mean Corpuscular Hgb Conc 35.2 g/dL (32-36)
[2020-08-26] MEDS: ASPIRIN 81 MG ECTAB PO SCH (07:51)
[2020-08-26] MEDS: TAMSULOSIN HCL 0.4 MG CAP PO SCH (07:53)
[2020-08-26] MEDS: ATORVASTATIN 10 MG TAB PO SCH (07:54)
[2020-08-26 07:57] LABS: Albumin Level 3.6 gm/dl (3.4-5.0); BUN Creatinine Ratio 16.4 (10-20); Calcium 8.8 mg/dl (8.5-10.1); Creatinine Clr Calc Pharmacy 43.3 ml/min; Est GFR (African American) 47.1; Est GFR (Non-African American) 40.7; Magnesium 2.2 mg/dl (1.8-2.4)
[2020-08-26 08:00] LABS: Bilirubin,Total 0.8 mg/dl (0.2-1); Globulin 3.6 gm/dl (2.5-4.0); Phosphorus 3.5 mg/dl (2.5-4.9); Total Protein 7.2 gm/dl (6.4-8.2)
--- NOTE | 2020-08-26 08:03 | XRay Report ---
XR abdomen 2V w PA chest CLINICAL HISTORY: epigastric pain COMPARISON STUDY: No previous studies for comparison. FINDINGS: Direct chest reveals no free intraperitoneal air. There is no focal pulmonary consolidation . Erect and supine views the abdomen reveal scattered colonic stool. There are no transition zones in dicate bowel obstruction. There is a metallic clip projected over the rectum. IMPRESSION: No evidence of bowel obstruction. No evidence of free air. ACT 112: Negative or not required by law. Electronically signed by: Roman Bhardwaj M.D. 08/26/2020 8:02 AM
[2020-08-26] MEDS ORDERED: dilTIAZem HCL 180 MG CAPCR PO SCH (09:00)
[2020-08-26] MEDS ORDERED: OLMESARTAN MEDOXOMIL 20 MG TAB PO SCH (09:00)
--- NOTE | 2020-08-26 09:34 | Communication Note ---
Date of Service: August 26, 2020 I was unable to speak with or examine the patient this morning prior to going down for surgery. However, I did speak with his cardiology office. Cardiac te sting in 06/2019 showed EF 60% without any major valvular issues. Stress test was also negative at that time. RCRI score is 3, giving him a 15% risk of cardiac arrest, VT, or at 30 days. However, given testing done ~1 year ago, would not recommend any further testing prior to proceeding with an urgent surgery. Will monitor EKGs and troponins post-operatively per 2016 [facility] Perioperative Guidelines.
[2020-08-26] MEDS ORDERED: MIDAZOLAM HCL 1 MG/ML 2ML VIAL ONE (09:40)
[2020-08-26] MEDS ORDERED: fentaNYL citrate 100 MCG/2 ML VIAL ONE ×3 (09:40→11:23)
--- NOTE | 2020-08-26 09:58 | History & Physical Bridge Note ---
Date of Service August 26, 2020 History & Physical Bridge Note I have examined the patient, reviewed the History & Physical and in the interval since the performance of the History & Physical I have noted the following changes of clinical significance: no changes noted pt seen. +RUQ pain c/w cholecystitis. discussed options /risks ...bleeding/infection/dvt/pe/mi/cva/injury to another structure, bile leaks/etc.... risk stratified per medicine...I believe the benefits outweigh the risks and we will proceed with lap asa. pt's questions answered and he agrees with the plan.
--- NOTE | 2020-08-26 10:06 | Anesthesiology Consultation ---
Date of Service August 26, 2020 Assessment & Plan Chart Review Chart Review: Acceptable Risk for Surgery Consults Requested none History Surgery Operation Date: 08/26/20 08:50 Proposed Procedures p Laparoscopic Cholecystectomy - Rios Prater DO Height/Weight Height: 5 ft 9 in Weight: 95.1 kg Allergies Allergy/AdvReac Type Severity Reaction Status Date / Time No Known Allergies Verified 08/25/20 23:21 Medications Home Medications Medication Instructions Recorded Confirmed Last Taken atorvastatin 10 mg tablet 10 mg PO QAM 01/24/19 08/25/20 07/04/20 09:00 metformin 1,000 mg tablet 1,000 mg PO BID 01/24/19 08/25/20 07/04/20 20:00 loratadine 10 mg tablet 10 mg PO QPM 06/10/19 08/25/20 07/04/20 20:00 omega-3 fatty acids 1,000 mg 1,000 mg PO QPM 06/10/19 08/25/20 07/04/20 20:00 capsule olmesartan 20 mg tablet 20 mg PO BID tab 06/30/19 08/25/20 07/05/20 08:00 aspirin 81 mg tablet,delayed 81 mg PO QAM 06/10/20 08/25/20 07/04/20 09:00 release diltiazem HCl 180 mg 180 mg PO QAM 06/10/20 08/25/20 07/05/20 08:00 capsule,extended release 24 hr empagliflozin 10 mg tablet 10 mg PO QAM 06/10/20 08/25/20 07/04/20 09:00 insulin aspart U-100 100 unit/mL 5 unit SUBCUT .am ml 06/10/20 08/25/2006/06 09:00 (3 mL) subcutaneous pen insulin aspart U-100 100 unit/mL 10 unit SUBCUT .Lunch and dinner 06/10/20 08/25/20 07/04/20 17:00 (3 mL) subcutaneous pen ml insulin glargine U-300 conc 300 50 unit SUBCUT QAM 06/10/20 08/25/20 07/04/20 09:00 unit/mL (3 mL) subcutaneous pen torsemide 20 mg tablet 20 mg PO QAM 06/10/20 08/25/20 07/04/20 09:00 Metamucil 1 tbsp PO DAILY 06/21/20 08/25/20 07/03/20 sucralfate enemas 2 g DE BID #60 ml 07/05/20 Unknown clindamycin phosphate 1 applic TOPICAL HS 08/25/20 08/25/20 Unknown tamsulosin 0.4 mg capsule 0.4 mg PO DAILY #30 cap 08/25/20 08/25/20 Unknown Active Medications Generic Name Dose Route Start Last Admin Trade Name Freq PRN Reason Stop Dose Admin Aspirin 81 mg 08/26/20 09:00 08/26/20 07:51 Aspirin 81 Mg Ectab PO 09/25/20 08:59 Not Given QAM SOULEYMANE Atorvastatin Calcium 10 mg 08/26/20 09:00 08/26/20 07:54 Atorvastatin 10 Mg Tab PO 09/25/20 08:59 10 mg QAM SOULEYMANE Administration Diltiazem HCl 180 mg 08/26/20 09:00 08/26/20 07:54 Diltiazem Hcl 180 Mg Capcr PO 09/25/20 08:59 180 mg QAM SOULEYMANE Administration Cefoxitin Sodium 2,000 mg/ 60 mls @ 100 mls/hr 08/26/20 00:30 08/26/20 07:02 Dextrose IV 09/05/20 00:29 Infused Q6H SOULEYMANE Infusion Insulin Aspart 0 units 08/26/20 06:00 08/26/20 06:45 Insulin Aspart 100 Units/Ml 3 Ml Pen SC 09/25/20 05:59 Not Given Q6 SOULEYMANE Olmesartan 20 mg 08/26/20 09:00 08/26/20 07:54 Olmesartan Medoxomil 20 Mg Tab PO 09/25/20 08:59 20 mg BID SOULEYMANE Administration Tamsulosin HCl 0.4 mg 08/26/20 09:00 08/26/20 07:53 Tamsulosin Hcl 0.4 Mg Cap PO 09/25/20 08:59 0.4 mg DAILY SOULEYMANE Administration NPO Date Last Intake of Fluids: 08/25/20 Time Last Intake of Fluids: 20:00 Last Intake of Fluids Comment: routine morning medications Date Last Intake of Solids: 08/25/20 Time Last Intake of Solids: 20:00 Past Medical History Medical History Blood in stool Chronic sinusitis Coronary arteriosclerosis Diabetes IDDM History of colon polyps History of prostate cancer dx 03/2020; h/o radiation Hyperlipidemia Hypertension Past Family History Family History Father , in his late 80s Diabetes Coronary heart disease Hx of CABG Stroke Sister Diabetes Acid reflux Mother , 90yo Natural with unknown cause Sister No problems noted. Son No problems noted. Daughter No problems noted. Other No family history of adverse response to anesthesia Past Surgical History Surgical History H/O nasal septoplasty History of cardiac catheterization approx 5 years ago - [facility] - abn stress test - no stents (sees dr. duenas) History of colonoscopy History of prostate biopsy S/P wrist surgery Right wrist surgery Status post surgery Hammer toe surgery on right great toe Social History Smoking Status: Never smoker Hx Alcohol Use: Yes Alcohol type: beer, wine and hard liquor alcohol intake frequency: a few times a week Hx Substance Use: No substance use type: does not use Physical Exam Vital Signs Last Vital Signs Temp 37 C 08/26/20 09:42 Pulse 90 08/26/20 09:42 Resp 18 08/26/20 09:42 BP 135/72 08/26/20 09:42 Pulse Ox 96 08/26/20 09:42 Testing Laboratory Results 08/26/20 06:37 08/26/20 06:37 Urine Color Yellow 08/26/20 06:15 Urine Appearance Clear (Clear) 08/26/20 06:15 Urine pH 6.0 (4.5-7.5) 08/26/20 06:15 Ur Specific [place] 1.045 (1.000-1.030) H 08/26/20 06:15 Urine Protein Negative (Negative) 08/26/20 06:15 Urine Glucose (UA) 3+ (Negative) H 08/26/20 06:15 Urine Ketones Negative (Negative) 08/26/20 06:15 Urine Nitrite Negative (Negative) 08/26/20 06:15 Ur Leukocyte Esterase Negative (Negative) 08/26/20 06:15 08/26/20 08/26/20 06:06 03:23 POC Glucose 101 H 109 H
[2020-08-26] MEDS ORDERED: PROMETHAZINE HCL 12.5 MG in SODIUM CHLORIDE 0.9% 50 ML IV PRN (10:07)
[2020-08-26] MEDS ORDERED: HYDROmorphone INJ 2 MG/ML SYR/VIAL IV PRN (10:07)
[2020-08-26] MEDS ORDERED: METOCLOPRAMIDE HCL INJ 5 MG/ML 2 ML VIAL IV PRN (10:07)
[2020-08-26] MEDS ORDERED: ATROPINE SULFATE 0.1 MG/ML 10ML SYR IV PRN (10:07)
[2020-08-26] MEDS ORDERED: fentaNYL citrate 100 MCG/2 ML VIAL IV PRN (10:07)
[2020-08-26] MEDS ORDERED: ePHEDrine sulfate 50 MG/ML AMP IV PRN (10:07)
[2020-08-26] MEDS ORDERED: BUPIVACAINE/EPINEPHRINE 0.5% MPF 1:200,000 30 ML VIAL ONE (10:10)
[2020-08-26] MEDS ORDERED: ePHEDrine sulfate 50 MG/ML SYR ONE (10:51)
[2020-08-26] MEDS ORDERED: ONDANSETRON INJ 2 MG/ML 2 ML VIAL ONE (10:51)
[2020-08-26] MEDS ORDERED: PHENYLEPHRINE 100MCG/ML 5ML SYR ONE (10:51)
[2020-08-26] MEDS ORDERED: GLYCOPYRROLATE 0.2 MG/ML VIAL ONE (10:51)
[2020-08-26] MEDS ORDERED: DEXAMETHASONE SOD INJ 4 MG/ML VIAL ONE (10:51)
[2020-08-26] MEDS ORDERED: LIDOCAINE HCL 2% 2 ML VIAL/AMP(20MG/ML) INFIL ONE (10:51)
[2020-08-26] MEDS ORDERED: NEOSTIGMINE METHYLSULFATE 5 MG/5 ML SYR ONE (10:51)
[2020-08-26] MEDS ORDERED: PROPOFOL IV EMULSION 10 MG/ML 20 ML VIAL IV ONE (10:51)
[2020-08-26] MEDS ORDERED: ROCURONIUM BROMIDE 10 MG/ML 5 ML VIAL IV ONE ×2 (10:51→11:05)
[2020-08-26] MEDS ORDERED: METOPROLOL TARTRATE 1 MG/ML VIAL IV ONE (10:59)
--- NOTE | 2020-08-26 11:32 | Operative Report ---
PG Post Operative Report Pre & Post Diagnosis Operation Date: 08/26/20 08:50 Pre-Op Diagnosis: Cholelithiasis, Acute Cholecystitis Post-Op Diagnosis: Cholelithiasis, Acute Cholecystitis I identified the patient and participated in the time-out.: Yes Procedure Operation Date: 08/26/20 08:50 Actual Procedures p Laparoscopic Cholecystectomy - Rios Prater DO Surgeon Rios Prater DO Floor Director sami Hess Estimated Blood Loss 20 Findings Consistent with Post-Op Diagnosis Specimens gallbladder Description of Procedure After informed consent was obtained the patient was taken to the operating room and placed in supine position. After successful intubation the abdomen was shaved and sterilely prepped and draped in usual fashion. A supraumbilical incision was made with an 11 blade scalpel and carried down through the soft tissues using cautery. Anterior rectus fascia was opened using cautery and two #0 Vicryl stay sutures were placed. Peritoneum was entered using blunt finger penetration. A 12 mm Coffey trocar was placed and the abdomen insufflated to 18 mmHg. The laparoscope was inserted and the abdomen examined in 360 degrees. Other than a fatty liver no gross abnormalities were initially seen. A subxiphoid 5 mm port which would later be converted to a 12 mm port was placed followed by 2 right mid abdominal 5 mm trochars. We pulled the omentum off the gallbladder it was acutely inflamed and gangrenous in appearance. We began by using a gallbladder needle to drain thick purulent bile. After doing this we did get some spillage of bile into the right upper quadrant as well as a few stones. Eventually I was able to dissect my way down to the neck of the gallbladder. When I skeletonized the cystic duct it was very thick and inflamed. Because of this I used a RAFFI brown cartridge stapler to transect the cystic duct. I was able to skeletonize and clipped the cystic artery with 2 c lips proximal and 1 clip distal and transected it. Electrocautery was used to remove the gallbladder from the gallbladder fossa. It was placed into an Endo Catch bag and removed from the camera port site. Several small bleeding points on the gallbladder fossa were controlled using cautery. Thorough irrigation was performed. The small stones were removed via suction as well. At the end of the procedure there was adequate hemostasis and no evidence of any bile leaks. There was a little bit of oozing in the gallbladder fossa so I placed a piece of Surgicel into the gallbladder fossa. A 10 flat Marcio-Pino drain was also placed into the right upper quadrant and brought out through one of the trocar sites. It was secured to the skin using 2-0 nylon. No other abnormalities were seen. The trochars were all removed and the abdomen desufflated. The fascia of the camera port was closed using 0 Vicryl in a [id number] fashion. All wounds were irrigated and closed using 4-0 Monocryl. Marcaine with epinephrine were injected around them for postoperative analgesia and skin glue used as a dressing. The patient was awakened extubated and transferred to recovery in stable condition. My physician retail loan originator assistant was present through the entire case. She helped prep the patient. She helped run the camera as well as retract the gallbladder during my dissection wound closure and dressing placement. I attest to the content of the Intraoperative Record and any orders documented therein. Any exceptions are noted below.
--- NOTE | 2020-08-26 12:48 | Anesthesiology Progress Note ---
Date of Service August 26, 2020 Anesthesia Post Procedure Vital Signs Vital Signs: Temp Pulse Pulse Pulse Resp BP BP 08/26/20 12:45 36.5 C 82 18 101/54 L 08/26/20 12:30 82 18 100/55 L 08/26/20 12:15 84 17 97/50 L 08/26/20 12:00 36.6 C 83 16 99/53 L 08/26/20 11:50 74 19 94/50 L 08/26/20 11:40 75 18 99/54 L 08/26/20 11:34 37.0 C 71 18 96/51 L 08/26/20 09:42 37 C 90 18 135/72 08/26/20 07:38 37.6 C H 89 17 125/80 08/26/20 02:53 36.5 C 97 H 14 157/83 H 08/26/20 01:30 163/98 H 08/26/20 01:00 162/97 H 08/26/20 00:30 161/100 H 08/26/20 00:00 163/92 H 08/25/20 23:42 08/25/20 23:40 150/94 H 08/25/20 23:00 92 H 22 160/104 H 08/25/20 22:30 85 12 167/90 H 08/25/20 22:29 96 H 08/25/20 21:44 81 19 08/25/20 21:30 82 16 181/109 H 08/25/20 21:02 36 C L 92 H 18 151/100 H 08/25/20 21:00 Pulse Ox 08/26/20 12:45 94 08/26/20 12:30 94 08/26/20 12:15 94 08/26/20 12:00 95 08/26/20 11:50 95 08/26/20 11:40 96 08/26/20 11:34 95 08/26/20 09:42 96 08/26/20 07:38 96 08/26/20 02:53 99 08/26/20 01:30 98 08/26/20 01:00 97 08/26/20 00:30 97 08/26/20 00:00 97 08/25/20 23:42 97 08/25/20 23:40 97 08/25/20 23:00 98 08/25/20 22:30 98 08/25/20 22:29 08/25/20 21:44 08/25/20 21:30 08/25/20 21:02 98 08/25/20 21:00 97 Pain Intensity Right Chest: Pain Intensity: 1 Right Lower Abdomen: Pain Intensity: 3 Right Upper Abdomen: Pain Intensity: 3 Transfer of Care Handoff Completed per policy Notes Mental Status: alert / awake / arousable and participated in evaluation Patient Amnestic to Procedure: Yes Nausea / Vomiting: adequately controlled Pain: adequately controlled Airway Patency, RR, SpO2: stable & adequate BP & HR: stable & adequate Hydration State: stable & adequate Anesthetic Complications: no major complications apparent
[2020-08-26] MEDS ORDERED: MoRPHine SULFATE 4 MG/ML 1 ML CARP\\VIAL IV PRN (12:52)
[2020-08-26] MEDS ORDERED: LACTATED RINGER'S 500 ML IV ONE (13:40)
[2020-08-26] MEDS ORDERED: Nursing to Pharmacy Communication SCH (14:45)
--- NOTE | 2020-08-26 15:35 | Hospitalist Progress Note ---
Date of Service August 26, 2020 Assessment & Plan (1) Acute cholecystitis: Franklin Eisenberg is a 80-year-old male with PMH difficult for coronary artery disease, prostate cancer, hypertension, and diabetes; who presented to the ER for concerns of abdominal pain over the last day. Acute cholecystitis: -Gallbladder ultrasound performed in ED demonstrating distended gallbladder with presence of gallstones and positive sonographic Yee sign -Mild elevation of AST and ALT -CT abdomen pelvis demonstrating fatty liver disease, gallbladder distention and cholelithiasis, diverticula without signs of diverticulitis, heterogeneous prostate -Surgery consulted - S/p lap asa with Dr. Prater on 08/26. No operative complications per op note. Continue cefoxitin at this time. Coronary artery disease: - Uncertain extent of coronary artery disease, but regularly follows with [facility] (Dr. Malcolm - [phone]). - I discussed the patient with their office. Most recent EF was 60% in 06/2019 and stress test at the same time was negative. - Continue atorvastatin, Cardizem, olmesartan at this time - Will get EKG tomorrow AM along with troponin. If normal, no need for further cardiac care until seen by outpatient doctor. Hypertension: BP is 100/60 this afternoon after surgery. - Will hold home Cardizem, olmesartan tomorrow Diabetes: -Hold home insulin regimen -BSG's ACHS with sliding scale insulin (2) Prostate cancer: (3) Coronary artery disease: Admission and Anticipated Discharge Date Admission Date: August 26, 2020 Subjective Doing well today. Some soreness in the RUQ and hungry. No chest pain. Reports no fevers/chills, chest pain, shortness of breath, nausea, or vomiting. Physical Exam Constitutional: WD/WN, vitals as above Eyes: EOM intact bilaterally; no conjunctival abnormality ENMT: external ear and nose normal, oropharynx normal Neck: trachea midline, no thyromegaly normal visual inspection Respiratory: normal respiratory effort, lungs clear to auscultation no respiratory distress Cardiovascular: RRR, no murmur, no edema Gastrointestinal (Abdomen): Inspection/Auscultation: abdomen normal to inspection; abdomen not distended Musculoskeletal: no cyanosis or clubbing, extremities motor strength 5/5 Skin: no rashes, warm and dry Neurologic: moves all extremities and awake Psychiatric: Orientation: alert, oriented to person and cooperative Results & Data Results & Data ([facility]) Vital Signs (Past 12 Hours) Vital Signs Temp Pulse Pulse Resp BP Pulse Ox 08/26/20 15:19 36.3 C L 88 16 97/59 L 97 08/26/20 13:53 36.9 C 93 H 16 94/56 L 96 08/26/20 13:11 37.4 C 91 H 17 92/59 L 94 08/26/20 12:45 36.5 C 82 18 101/54 L 94 08/26/20 12:30 82 18 100/55 L 94 08/26/20 12:15 84 17 97/50 L 94 08/26/20 12:00 36.6 C 83 16 99/53 L 95 08/26/20 11:50 74 19 94/50 L 95 08/26/20 11:40 75 18 99/54 L 96 08/26/20 11:34 37.0 C 71 18 96/51 L 95 08/26/20 09:42 37 C 90 18 135/72 96 08/26/20 07:38 37.6 C H 89 17 125/80 96 PG Care Time/CCT Total # of Minutes Spent Total Time Spent with Patient: Total time spent is greater than 50% in coordination of care (as documented) at patient's floor/unit and/or counseling patient: Coding Level of Care Code 51501 Subseq Hosp Care Lvl 2 Diagnoses Acute cholecystitis K81.0 Prostate cancer C61 Coronary artery disease I25.10
--- NOTE | 2020-08-26 16:36 | Electrocardiogram Report ---
Test Reason : Blood Pressure : / mmHG Vent. Rate : 085 BPM Atrial Rate : 085 BPM P-R Int : 200 ms QRS Dur : 096 ms QT Int : 392 ms P-R-T Axes : 063 -25 020 degrees QTc Int : 466 ms Normal sinus rhythm Incomplete right bundle branch block Borderline ECG When compared with ECG of 22-SEP-2009 10:30, ST no longer elevated in Anterior leads QT has lengthened Confirmed by Toño Jones ([id number]) on 08/26/2020 4:36:23 PM Referred By: REFERRED SELF Confirmed By:Lio Jones
[2020-08-26] MEDS ORDERED: ACETAMINOPHEN 325 MG TAB PO PRN (16:41)
[2020-08-26] MEDS ORDERED: COUGH DROP (SUGAR FREE) LOZ 24 LOZ/1 BOX BUCCAL PRN (20:19)
[2020-08-26] MEDS: oxyCODONE/ACETAMINOPHEN 5mg/325mg TAB PO PRN (22:01)
[2020-08-27] MEDS: cefOXitin 2,000 MG in DEXTROSE 5% 50 ML IV SCH ×2 (00:03→05:49)
[2020-08-27 03:30] VITALS: TEMP 98.1
[2020-08-27] MEDS: oxyCODONE/ACETAMINOPHEN 5mg/325mg TAB PO PRN (04:36)
--- NOTE | 2020-08-27 05:45 | Billing Data ---
Date of Service August 27, 2020 Coding Level of Care Code 11650 Initial Inpt Care Lvl 3
[2020-08-27 05:50] LABS: Basophils # (auto) 0.01 K/uL (0-0.2); Basophils % (auto) 0.1 %; Hematocrit (blood only) 33.7 % (42-52); Hemoglobin 11.5 g/dL (14.0-18.0); Immature Granulocytes # (auto) 0.02 K/uL (0.00-0.02); Immature Granulocytes % (auto) 0.2 %; Lymphocytes # (auto) 0.52 K/uL (1.2-3.4); Lymphocytes % (auto) 6.1 %; Mean Corpuscular Hemoglobin 31.3 pg (25-34); Mean Corpuscular Hgb Conc 34.1 g/dL (32-36); Mean Corpuscular Volume 91.6 fL (80-100); Monocytes # (auto) 0.59 K/uL (0.11-0.59); Monocytes % (auto) 6.9 %; Neutrophils # (auto) 7.38 K/uL (1.4-6.5); Neutrophils % (auto) 86.7 %; Platelet Count 116 K/uL (130-400); RDW Standard Deviation 43.5 fL (36.4-46.3); Red Blood Count 3.68 M/uL (4.7-6.1); White Blood Count 8.52 K/uL (4.8-10.8)
[2020-08-27 06:22] LABS: Alanine Aminotransferase 131 U/L (12-78); BUN Creatinine Ratio 26.5 (10-20); Blood Urea Nitrogen 29 mg/dl (7-18); Calcium 8.1 mg/dl (8.5-10.1); Carbon Dioxide 26 mmol/L (21-32); Chloride 105 mmol/L (98-107); Est GFR (African American) 74.1; Glucose 142 mg/dl (70-99); Magnesium 2.3 mg/dl (1.8-2.4); Potassium 4.2 mmol/L (3.5-5.1); Sodium 136 mmol/L (136-145)
[2020-08-27 06:29] LABS: Albumin Globulin Ratio 0.8 (0.9-2); Alkaline Phosphatase 45 U/L (45-117); Aspartate Aminotransferase 85 U/L (15-37); Bilirubin,Total 0.9 mg/dl (0.2-1); Globulin 3.6 gm/dl (2.5-4.0); Total Protein 6.6 gm/dl (6.4-8.2); Troponin I < 0.015 ng/ml (0-0.045)
[2020-08-27 07:21] VITALS: BP 103/65; PULSE 76; O2SAT 90
--- NOTE | 2020-08-27 08:13 | Surgery Progress Note ---
Date of Service August 27, 2020 Assessment & Plan (1) Acute cholecystitis: POD#1 laparoscopic cholecystectomy WBC: 8.5, LFT's-- Tb: 0.9, AST: 85, ALT: 131, alkp:45 Patient overall doing well Pain controlled with prn medication Tolerating a regular diet GUIDO drain serosang; will remove today From our standpoint pt can be discharged to home; no need for further abx Admission and Anticipated Discharge Date Admission Date: August 26, 2020 Subjective Patient says his pain is improved. He is tolerating a diet without nausea/vomiting. Says he has been ambulating to the restroom and been sitting up in the chair. Physical Exam Physical Exam: awake/alert, sitting up in bed Constitutional: well developed and well nourished; no acute distress Respiratory: normal respiratory effort Gastrointestinal (Abdomen): Inspection/Auscultation: + abdominal surgical incision (c/d/i with dermabond overtop) and + abdominal surgical drain present (70cc; serosang) Percussion/Palpation: + abdomen tender (some expected ttp in RUQ) and abdomen soft Results & Data ([facility]) Vital Signs (Past 12 Hours) Vital Signs Temp Pulse Resp BP Pulse Ox 08/27/20 07:21 36.7 C 76 16 103/65 90 08/27/20 03:28 36.7 C 77 16 105/70 92 08/27/20 00:31 37.1 C 82 16 99/64 L 92 PG Care Time/CCT Total # of Minutes Spent Total Time Spent with Patient: Total time spent is greater than 50% in coordination of care (as documented) at patient's floor/unit and/or counseling patient: Coding Level of Care Code None Diagnoses Acute cholecystitis K81.0
[2020-08-27] MEDS: ATORVASTATIN 10 MG TAB PO SCH (08:42)
[2020-08-27] MEDS: ASPIRIN 81 MG ECTAB PO SCH (08:42)
[2020-08-27] MEDS: TAMSULOSIN HCL 0.4 MG CAP PO SCH (08:43)
[2020-08-27] MEDS: INSULIN ASPART 100 UNITS/ML 3 ML PEN SC SCH (08:44)
--- NOTE | 2020-08-27 14:32 | Discharge Summary ---
Date of Service August 27, 2020 Admission HPI Per Admitting Provider Franklin Eisenberg is a 80-year-old male with PMH difficult for coronary artery disease, prostate cancer, hypertension, and diabetes; who presented to the ER for concerns of abdominal pain over the last day. Over the last of years patient has intermittently had abdominal pain after eating certain types of meals, however yesterday following eating lunch this pain presented self and patient subsequently noticed that he felt nauseous and ultimately vomited multiple times. This nausea, vomiting, and right upper abdominal pain persisted throughout the day and into the evening and after starting to eat dinner and hav ing the pain worsening, patient discussed with desire to go to the hospital for further evaluation as he was not sure if it was truly abdominal or cardiac in nature. Throughout this time patient had no substernal chest pain, radiating chest pain, shortness of breath, shortness of breath with exertion, headache, lightheadedness, dizziness, changes in vision, swelling of his hands or legs. Was mainly worried about the potential for this to be his heart, given that in 2012 patient had chest pain event that ultimately resulted in him having a cardiac catheterization, for which he was told he had a small amount of plaque in one of his vessels (does not remember which one). He has been subsequently following with cardiology at [facility] cardiology clinic for the last several years without repeat events. States that as of 2019, did have an echo as well as cardiac stress test that were negative (thinks this was in June 2019). Principal Diagnosis Acute cholecystitis Discharge Exam Constitutional WD/WN, vitals as above Eyes EOM intact bilaterally; no conjunctival abnormality ENMT external ear and nose normal, oropharynx normal Neck trachea midline, no thyromegaly normal visual inspection Respiratory normal respiratory effort, lungs clear to auscultation no respiratory distress Cardiovascular RRR, no murmur, no edema Gastrointestinal (Abdomen) Inspection/Auscultation: abdomen normal to inspection; abdomen not distended Musculoskeletal no cyanosis or clubbing, extremities motor strength 5/5 Skin no rashes, warm and dry Neurologic moves all extremities and awake Psychiatric Orientation: alert, oriented to person and cooperative Discharge Data Allergies Allergy/AdvReac Type Severity Reaction Status Date / Time No Known Allergies Verified 08/25/20 23:21 Consultations 08/25/20 23:29 ED Decision to Admit Stat Procedures Performed Operation Date: 08/26/20 08:50 Actual Procedures p Laparoscopic Cholecystectomy - Rios Prater, Ordered Studies 08/25/20 21:29 US gallbladder Urgent 08/25/20 23:14 CT abd pelvis IV con only Urgent Hospital Course (1) Acute cholecystitis: Franklin Eisenberg is a 80-year-old male with PMH difficult for coronary artery disease, prostate cancer, hypertension, and diabetes; who presented to the ER for concerns of abdominal pain over the last day. Acute cholecystitis: -Gallbladder ultrasound performed in ED demonstrating distended gallbladder with presence of gallstones and positive sonographic Yee sign -Mild elevation of AST and ALT -CT abdomen pelvis demonstrating fatty liver disease, gallbladder distention and cholelithiasis, diverticula without signs of diverticulitis, heterogeneous prostate -Surgery consulted - S/p lap asa with Dr. Prater on 08/26. No operative complications per op note. Discharged home after drain removal. No abx per surgical team. Coronary artery disease: - Uncertain extent of coronary artery disease, but regularly follows with [facility] (Dr. Malcolm - [phone]). - I discussed the patient with their office. Most recent EF was 60% in 06/2019 and stress test at the same time was negative. - Continue atorvastatin, Cardizem, olmesartan at this time - EKG and troponin both normal on 08/27. Return to normal cardiology care. No changes needed inpatient. Hypertension: BP was 100/60 after surgery. - Held home Cardizem, olmesartan, but can return to normal home meds on discharge. Diabetes: -Hold home insulin regimen -BSG's ACHS with sliding scale insulin (2) Prostate cancer: (3) Coronary artery disease: Total Time Total Time Spent Total Time Spent (In Minutes): 35 Discharge Plan Discharge Items Patient Disposition: Home - Self-Care Reason For Visit: CHOLELITHIASIS Discharge Diagnosis: cholecystitis Activity: Per Instructions section Lifting: No more than 10 pounds Bathing Comment: may shower; no soaking in tubs/pools Exercise/Sports: Wait until after follow-up appointment Driving/Machine Use: do not resume driving while taking narcotics for pain Non-emergency contact: Primary Care Provider and Surgeon Call non-emergency contact if: you have any medication questions, your symptoms worsen, your pain is not controlled, your pain is worsening, your pain is unusual for you, your pain is concerning for you, you have a fever, your temperature is above 101.5, your wound has increased redness, your wound has increased drainage and your wound pain has increased Follow-up/Referrals: Rios Prater DO [Surgeon] - 09/01/20 10:45 am (Please call to schedule follow up in clinic within 1 week) Joon Parham [Primary Care Provider] - Diet: Heart Healthy Addtl Attending Provider Instructions: You were admitted to the hospital with pain that was coming from the gallbladder due to gallstones and inflammation there. Dr. Prater removed your gallbladder, and you are doing well. Please follow up with him. Please call his office with any concerning symptoms such as increasing pain, redness at the incision sites, fevers, nausea, or vomiting. If you are very concerned, please return to the hospital for evaluation. Pending Studies at Discharge: Yes Studies:: Surgical pathology Stand-Alone Forms: My [facility], Opioid Pain Management, Smoking Cessation Medications and DC Order Prescriptions: New hydrocodone-acetaminophen 5-325 mg tablet 1 - 2 tab PO .q4h- q6h PRN (Reason: pain, for initial therapy, max 6 tabs per day ) Qty: 15 RF: 0 Continued insulin aspart U-100 [Novolog Flexpen U-100 Insulin] 100 unit/mL (3 mL) insulin pen 5 unit subcut .am RF: 0 insulin aspart U-100 [Novolog Flexpen U-100 Insulin] 100 unit/mL (3 mL) insulin pen 10 unit subcut .Lunch and dinner RF: 0 Toujeo Max U-300 SoloStar 300 unit/mL (3 mL) insulin pen 50 unit subcut QAM RF: 0 Jardiance 10 mg tablet 10 mg PO QAM RF: 0 torsemide 20 mg tablet 20 mg PO QAM RF: 0 diltiazem HCl [Cartia XT] 180 mg capsule,extended release 24hr 180 mg PO QAM RF: 0 aspirin [Adult Low Dose Aspirin] 81 mg tablet,delayed release (DR/EC) 81 mg PO QAM RF: 0 loratadine [Claritin] 10 mg tablet 10 mg PO QPM RF: 0 omega-3 fatty acids [Fish Oil Concentrate] 1,000 mg capsule 1,000 mg PO QPM RF: 0 sucralfate enemas 2 g enema 2 g IN BID Qty: 60 RF: 1 tamsulosin 0.4 mg capsule 0.4 mg PO DAILY Qty: 30 RF: 5 metformin 1,000 mg tablet 1,000 mg PO BID RF: 0 atorvastatin 10 mg tablet 10 mg PO QAM RF: 0 olmesartan 20 mg tablet 20 mg PO BID RF: 0 Metamucil 3.4 gram/5.4 gram Powder 1 tbsp PO DAILY RF: 0 clindamycin phosphate 1 % solution 1 applic TOPICAL HS RF: 0 Discharge Orders: Discharge Order (Routine); Ordered 08/27/20 Ordered By: Eulogio Ball/Other Patient Handouts: DVT Post Op Prevention Admission Data Admit Date/Time: 08/26/20 01:52 Attending Provider: Eulogio Aaron Admit Provider: Kemal Stahl Primary Care Provider: Joon Parham Other Providers: Eulogio Aaron ; Tye Monroe Other Interventions: Discharge Summary Assessment (RN) Last Done: 08/27/20 10:26 Coding Level of Care Code D/C Day Management >30 mins Diagnoses Acute cholecystitis K81.0 Prostate cancer C61 Coronary artery disease I25.10
--- NOTE | 2020-08-27 16:00 | Electrocardiogram Report ---
Test Reason : Blood Pressure : / mmHG Vent. Rate : 077 BPM Atrial Rate : 077 BPM P-R Int : 168 ms QRS Dur : 100 ms QT Int : 390 ms P-R-T Axes : 047 -14 010 degrees QTc Int : 441 ms Normal sinus rhythm Incomplete right bundle branch block Borderline ECG When compared with ECG of 25-AUG-2020 21:11, No significant change was found Confirmed by Toño Jones ([id number]) on 08/27/2020 4:00:02 PM Referred By: REFERRED SELF Confirmed By:Lio Jones
== END 2020-08-27 11:58 | disposition home or self-care (01) ==
LOC: ED 20:58 → INTOOBSV 08-26 01:52 → 3E 08-26 01:52 → SUATTDRO 08-26 01:52 → 3E 08-26 02:15